=== PATIENT | male | born 1965 | race Caucasian/White ===

== ENCOUNTER → 2017-02-27 | Outpatient (CLI) | payer BC | LOC: MW.CHFP 08:28 | PROVIDERS: ATTEND Emergency Medicine | DX: M25.572 Pain in left ankle and joints of left foot (principal) | CPT/HCPCS: 36415; 84550 ==

== ENCOUNTER 2021-03-27 11:04 | Day surgery (SDC) | payer BC ==
[2021-03-27] MEDS ORDERED: Ropivacaine 0.5% 5 MG/ML 30 ML SDV INJECT ONE (12:30)
[2021-03-27] MEDS ORDERED: Betamethasone Acetate/Betamethasone Sod Phosphate 30 MG/5 ML MDV EPIDUR ONE (12:30)
[2021-03-27] MEDS ORDERED: Iopamidol 200-M 10 ML vial ITHECAL ONE (12:30)
[2021-03-27] MEDS ORDERED: Lidocaine 2% 5 ML SDV INJECT ONE (12:30)
--- NOTE | 2021-03-27 22:23 | OR ---
SURGEON: Veronica Salinas D.O. DATE OF PROCEDURE: 03/27/2021 PRIMARY SURGEON: Veronica Salinas D.O. SALES EFFECTIVENESS MANAGER: OR staff present: 1. Magdiel Calixto RN. 2. Kasia Arce RN. 3. Terry Turner RT. WOUND CLASS: I. PREOPERATIVE DIAGNOSES: 1. Right hip osteoarthritis. 2. Right hip pain. POSTOPERATIVE DIAGNOSES: 1. Right hip osteoarthritis. 2. Right hip pain. PROCEDURES PERFORMED: 1. Right intra-articular hip injection. 2. Fluoroscopic guidance for needle placement. 3. Local with oral Valium for sedation. SCREENING QUESTIONS: The patient answered "No" to all the following questions: 1. Are you allergic to iodine, Betadine, or latex? 2. Do you have a bleeding disorder? 3. Do you have any joint replacements, heart valve replacements or a pacemaker? 4. Are you allergic to anti-inflammatories? 5. Are you on any blood thinners? 6. Do you have any current local or systemic infections? DESCRIPTION OF PROCEDURE: The patient had the procedure thoroughly explained including all possible risks, benefits and alternatives. Consent was signed in my clinic indicating understanding and willingness to proceed. The patient presented to [facility] and was escorted to the dressing room to disrobe and change into a hospital gown. Preoperative vital signs were taken and stable. The patient reported that Valium was taken prior to the procedure. The patient was brought to the procedure room and placed in the supine position on the procedure room table. The right hip landmarks were identified for the intra- articular injection and the femoral pulse was palpated and marked. The skin was marked long term between the femoral pulse and greater trochanter for a skin wheal. The skin was sterilely prepped with ChloraPrep and draped. All personnel in the operating room were dressed in appropriate attire including surgical scrubs, head and shoe covers. This was to ensure sterility while in the treatment room. During the time fluoroscopy was in use, all personnel in the operating room wore lead gomez with thyroid collars. Sterile technique was used during the procedure. The fluoroscope was placed for the intra-articular hip injection. There were no signs of infection at the site for needle insertion. The skin was anesthetized with 2% Lidocaine with a 27-gauge 1.5 inch needle. Then using a 22-gauge 3.5 inch spinal needle, I advanced to the capsule of the hip joint, a pop was felt. Under direct fluoroscopic guidance verifying needle positioning, 0.2 cubic centimeters increments of IsoVue-200 dye was injected and shown to outline the intra-articular space. No intravascular flow pattern was observed under live fluoroscopy. After negative aspiration, a mixture of 0.5% Ropivacaine, 2% Lidocaine, and 12 milligrams of Celestone was slowly injected in small increments after negative aspiration of heme. No paresthesias were noted. The needle was cleared prior to removal from the skin and no adverse reactions were noted. The patient was then brought to the recovery room awake and in good condition by my staff. After a brief stay in the recovery room, the patient was discharged to home. Both oral and written discharge and followup instructions were given to the patient. The patient will follow up in the clinic in two to three weeks postprocedure to evaluate the efficacy. The patient verbalized understanding including understanding those signs and symptoms that would require emergency care and knows how to contact the office if there are any problems or questions in the meantime. PREOPERATIVE PAIN: 5/10. POSTOPERATIVE PAIN: 0/10. FOLLOWUP: Follow up in the Pain Clinic in 3 weeks. HOGLCHR / SHANELLL /[id number]
== END 2021-03-27 13:13 ==
LOC: MW.SDS 11:04
PROVIDERS: ATTEND Anesthesiology
DX: G89.29 Other chronic pain (principal); M16.11 Unilateral primary osteoarthritis, right hip; E78.00 Pure hypercholesterolemia, unspecified; M51.14 Intervertebral disc disorders with radiculopathy, thoracic region; M47.24 Other spondylosis with radiculopathy, thoracic region; M47.26 Other spondylosis with radiculopathy, lumbar region; M41.20 Other idiopathic scoliosis, site unspecified; Z88.6 Allergy status to analgesic agent
CPT/HCPCS: 20610; J0702; J2795; Q9966

== ENCOUNTER 2021-12-14 06:13 | Emergency (ER) | payer BC ==
[2021-12-14 19:28] VITALS: BP 147/73; PULSE 60
== END 2021-12-14 07:04 | disposition home or self-care (01) ==
LOC: MW.ED 06:13
DX: K60.2 Anal fissure, unspecified (principal); E78.00 Pure hypercholesterolemia, unspecified; E66.9 Obesity, unspecified; Z88.5 Allergy status to narcotic agent; Z68.29 Body mass index [BMI] 29.0-29.9, adult
CPT/HCPCS: 99283

== ENCOUNTER 2025-01-20 11:52 | Emergency (ER) | payer BC ==
[2025-01-20 12:39] LABS: BASOPHILS ABSOLUTE AUTO 0.05 K/uL (0.00-0.20); BASOPHILS PERCENT AUTO 0.7 % (0.0-1.0); EOSINOPHILS PERCENT AUTO 1.5 % (0.0-6.0); HEMATOCRIT 40.8 % (42.0-52.0); HEMOGLOBIN 14.8 g/dL (14.0-18.0); IMMATURE GRAN ABSOLUTE AUTO 0.03 K/uL (0.00-0.05); IMMATURE GRAN PERCENT AUTO 0.4 % (0.0-0.4); LYMPHOCYTES ABSOLUTE AUTO 1.64 K/uL (1.00-4.80); LYMPHOCYTES PERCENT AUTO 23.9 % (24.0-44.0); MEAN CORPUSCULAR HEMOGLOBIN 32.5 pg (28.0-32.0); MEAN CORPUSCULAR HGB CONC 36.3 g/dL (32.0-36.0); MEAN CORPUSCULAR VOLUME 89.7 fL (83.0-99.0); MONOCYTES ABSOLUTE AUTO 0.79 K/uL (0.00-0.80); MONOCYTES PERCENT AUTO 11.5 % (0.0-8.0); NEUTROPHILS ABSOLUTE AUTO 4.26 K/uL (1.80-7.70); PLATELET COUNT,PLT 158 K/uL (150-400); RED BLOOD CELL COUNT 4.55 M/uL (4.52-5.90); WHITE BLOOD CELL COUNT,WBC 6.87 K/uL (3.9-11.3)
[2025-01-20 12:46] LABS: INR 1.08 (0.86-1.11)
[2025-01-20] MEDS: Sodium Chloride 0.9% 1,000 ML IV ONE ×2 (12:54→13:37)
[2025-01-20 12:57] LABS: A/G RATIO 1.3 (0.9-1.6); ALBUMIN 3.6 g/dL (3.4-5.0); CALCIUM 8.6 mg/dL (8.5-10.1); CARBON DIOXIDE,CO2 32.2 mmol/L (21.0-32.0); EST CRCL DRUG DOSING (CG) 82.62 mL/min; MAGNESIUM 1.8 mg/dL (1.8-2.4); POTASSIUM,K 3.3 mmol/L (3.5-5.1); PROTEIN TOTAL,TP 6.3 g/dL (6.4-8.2)
[2025-01-20 14:07] LABS: APPEARANCE,URINE CLEAR; BILIRUBIN,URINE NEGATIVE (NEGATIVE); COLOR,URINE YELLOW; GLUCOSE,URINE NEGATIVE (NEGATIVE); KETONES,URINE NEGATIVE (NEGATIVE); LEUKOCYTE ESTERASE,URINE NEGATIVE (NEGATIVE); NITRITE,URINE NEGATIVE (NEGATIVE); OCCULT BLOOD,URINE NEGATIVE (NEGATIVE); PH,URINE 6.5 (5.0-8.0); PROTEIN,URINE NEGATIVE (NEGATIVE); UROBILINOGEN,URINE 0.2 EU/dL (<2.0)
[2025-01-20 16:02] VITALS: BP 135/80; PULSE 50
== END 2025-01-20 16:08 | disposition home or self-care (01) ==
LOC: MW.ED 11:52
DX: R55 Syncope and collapse (principal); R42 Dizziness and giddiness; R23.2 Flushing; R00.1 Bradycardia, unspecified; E78.00 Pure hypercholesterolemia, unspecified; Z88.5 Allergy status to narcotic agent; Z79.899 Other long term (current) drug therapy
CPT/HCPCS: 36415; 70450; 71045; 80053; 81003; 82947; 83735; 83880; 84484; 85025; 85610; 93005; 96360; 96361; 99284; J7030; 99283